=== PATIENT | male | born 1955 | race Caucasian/White ===

== ENCOUNTER 2019-02-24 13:26 | Outpatient (CLI) | payer MEDICARE, MEDICAID, SELFPAY ==
--- NOTE | 2019-02-24 13:40 | MERGE_ITS ---
*[facility]* *[facility]* [address] [place] [address] Date of study: 02/24/2019 Transthoracic Echocardiography M-mode, complete 2D, complete spectral Doppler, and color Doppler *STUDY CONCLUSIONS* Impressions: The patient was in atrial fibrillation throughout study. This rhythm can interfere with accurate global and segmental wall motion analysis. Summary: 1. Left ventricle: The cavity size was normal. Wall thickness was increased increased in a pattern of mild to moderate LVH. Systolic function was at the lower limits of normal. The estimated ejection fraction was 50-55%. Wall motion was normal; there were no regional wall motion abnormalities. 2. Aortic valve: Trileaflet; normal thickness, mildly calcified leaflets. 3. Ascending aorta: The ascending aorta was mildly dilated. 4. Left atrium: The atrium was mildly dilated. 5. Right ventricle: The cavity size was normal. Wall thickness was normal. Systolic function was normal. 6. Right atrium: The atrium was mildly to moderately dilated. 7. Pulmonary arteries: Pulmonary systolic pressure was increased, in the range of 30mm Hg to 40mm Hg. *PATIENT PRESENTATION* Height: 172.7cm ((68in) ) S/D Pressure: 136 / 83 Weight: 117.9kg ((259.5lb) ) BSA: 2.43m^2 Test start time: 01:45 PM. Test stop time: 02:45 PM. PERFORMING Unknown Jaiden Amin Robert CONSULTING Burnell, Kathryn Aprn PERFORMING [facility] [employer] RT Constantino (R)(CT), SUE *PROCEDURE DATA* Procedure information: This study was interpreted by [facility]. Pertinent images and digital data are archived for permanent storage and are available for subsequent review. No prior study was available for comparison. Study status: Routine. Transthoracic echocardiography. M-mode, complete 2D, complete spectral Doppler, and color Doppler. A Transthoracic Echocardiogram was performed. Scanning was performed from the parasternal, apical, subcostal, and suprasternal notch acoustic windows. Images were obtained using an [id number] cardiac ultrasound machine. Image quality was adequate. Study completion: The patient tolerated the procedure well. There were no complications. History: PMH: Hypertensive disorder I 10. *CARDIAC ANATOMY* Left ventricle: The cavity size was normal. Wall thickness was increased increased in a pattern of mild to moderate LVH. Systolic function was at the lower limits of normal. The estimated ejection fraction was 50-55%. Wall motion was normal; there were no regional wall motion abnormalities. The study was not technically sufficient to allow evaluation of LV diastolic dysfunction due to atrial fibrillation. Aortic valve: Trileaflet; normal thickness, mildly calcified leaflets. Mobility was not restricted. Doppler: Transvalvular velocity was within the normal range. There was no stenosis. There was no significant regurgitation. VTI ratio of LVOT to aortic valve: 0.73. Valve area (VTI): 2.4cm^2. Indexed valve area (VTI): 1cm^2/m^2. Peak velocity ratio of LVOT to aortic valve: 0.72. Valve area (Vmax): 2.4cm^2. Indexed valve area (Vmax): 1cm^2/m^2. Mean velocity ratio of LVOT to aortic valve: 0.7. Valve area (Vmean): 2.3cm^2. Indexed valve area (Vmean): 0.9cm^2/m^2. Mean gradient (S): 4.6mm Hg. Peak gradient (S): 7mm Hg. Aorta: Aortic root: The aortic root was normal in size. Ascending aorta: The ascending aorta was mildly dilated. Mitral valve: Mildly thickened leaflets. Mobility was not restricted. Doppler: Transvalvular velocity was within the normal range. There was no evidence for stenosis. There was trivial regurgitation. Valve area by pressure half-time: 6.7cm^2. Indexed valve area by pressure half-time: 2.7cm^2/m^2. Peak gradient (D): 3.3mm Hg. Left atrium: The atrium was mildly dilated. Right ventricle: The cavity size was normal. Wall thickness was normal. Systolic function was normal. Pulmonic valve: Structurally normal valve. Doppler: Transvalvular velocity was within the normal range. There was no evidence for stenosis. There was no significant regurgitation. Peak gradient (S): 3.4mm Hg. Tricuspid valve: Structurally normal valve. Doppler: Transvalvular velocity was within the normal range. There was no evidence for stenosis. There was mild regurgitation. Pulmonary artery: Pulmonary systolic pressure was increased, in the range of 30mm Hg to 40mm Hg. Right atrium: The atrium was mildly to moderately dilated. Pericardium: There was no pericardial effusion. Systemic veins: Inferior vena cava: Well visualized. The vessel was patent and normal in size. The respirophasic diameter changes were in the normal range (greater than or equal to 50%). Baseline ECG: Atrial fibrillation. Measurements Left ventricle Value Reference LV ID, ED, PLAX 5.1 cm 3.5 - 6.0 LV ID, ES, PLAX 3.7 cm 2.1 - 4.0 LV PW thickness, ED, PLAX 1.4 cm LV end-diastolic volume, 1-p A2C 70 ml LV ejection fraction, 1-p A2C 56 % LV end-diastolic volume, 1-p A4C 57 ml LV ejection fraction, 1-p A4C 55 % LV e', lateral 0.144 m/sec LV E/e', lateral 6 LV e', medial 0.101 m/sec LV E/e', medial 9 LV e', average 0.122 m/sec LV E/e', average 7 Ventricular septum Value Reference IVS thickness, ED, PLAX 1.3 cm LVOT Value Reference LVOT ID, A-P 2.0 cm LVOT area 3.3 cm^2 LVOT peak velocity, S 0.94 m/sec LVOT mean velocity, S 0.73 m/sec LVOT VTI, S 13.9 cm LVOT peak gradient, S 3.6 mm Hg LVOT mean gradient, S 2.3 mm Hg Stroke volume (SV), LVOT DP 46 ml Stroke index (SV/bsa), LVOT DP 19 ml/m^2 Aortic valve Value Reference Aortic valve peak velocity, S 1.3 m/sec Aortic valve mean velocity, S 1.05 m/sec Aortic valve VTI, S 19.0 cm Aortic mean gradient, S 4.6 mm Hg Aortic peak gradient, S 7 mm Hg VTI ratio, LVOT/AV 0.73 Aortic valve area, VTI 2.4 cm^2 Velocity ratio, peak, LVOT/AV 0.72 Aortic valve area, peak velocity 2.4 cm^2 Velocity ratio, mean, LVOT/AV 0.7 Aortic valve area, mean velocity 2.3 cm^2 Aortic valve area/bsa, mean velocity 0.9 cm^2/m^2 Aorta Value Reference Aortic root ID, ED 3.0 cm Ascending aorta ID, A-P, S 3.8 cm Left atrium Value Reference LA ID, A-P, ES 4.6 cm LA ID/bsa, A-P 1.9 cm/m^2 <=2.2 LA area, ES, A4C 22.5 cm^2 8.8 - 23.4 LA area, ES, A2C 22 cm^2 LA volume/bsa, ES, 1-p A4C 33 ml/m^2 LA volume, ES, 2-p 68 ml LA volume/bsa, ES, 2-p 28 ml/m^2 LA/aortic root ratio 1.54 Mitral valve Value Reference Mitral E-wave peak velocity 0.91 m/sec Mitral deceleration time (L) 114 ms 150 - 230 Mitral pressure half-time 33 ms Mitral peak gradient, D 3.3 mm Hg Mitral valve area, PHT, DP 6.7 cm^2 Tricuspid valve Value Reference Tricuspid regurg peak velocity 2.8 m/sec Tricuspid peak RV-RA gradient 30.7 mm Hg Right atrium Value Reference RA area, ES, A4C (H) 24.1 cm^2 8.3 - 19.5 Pulmonic valve Value Reference Pulmonic peak gradient, S 3.4 mm Hg Legend: (L) and (H) rhiannon values outside specified reference range. I have personally reviewed the images and have reviewed and edited the reported findings. Electronically signed by Uriel Montenegro 02/24/2019 15:40
== END 2019-02-24 13:46 ==
PROVIDERS: PCP Nurse Practitioner Family; Visit Provider Neuromusculoskeletal Medicine & OMM
DX: I48.91 Unspecified atrial fibrillation (principal); I51.7 Cardiomegaly; I10 Essential (primary) hypertension
CPT/HCPCS: 93306

== ENCOUNTER 2019-05-08 09:01 | Outpatient (CLI) | payer MEDICARE, MEDICAID, SELFPAY | END 2019-05-08 09:21 | PROVIDERS: Visit Provider Student in an Organized Health Care Education/Training Program | DX: I48.2 Chronic atrial fibrillation (principal); I10 Essential (primary) hypertension; E11.9 Type 2 diabetes mellitus without complications; N20.0 Calculus of kidney; Z79.84 Long term (current) use of oral hypoglycemic drugs | CPT/HCPCS: 99205; 93005; 93010 ==

== ENCOUNTER → 2019-06-04 11:15 | Outpatient (BNVA) | payer MEDICARE, MEDICAID, SELFPAY | PROVIDERS: PCP Neuromusculoskeletal Medicine & OMM; Visit Provider Student in an Organized Health Care Education/Training Program | DX: I48.2 Chronic atrial fibrillation (principal); I10 Essential (primary) hypertension; E11.9 Type 2 diabetes mellitus without complications; Z79.01 Long term (current) use of anticoagulants; Z79.84 Long term (current) use of oral hypoglycemic drugs | CPT/HCPCS: 99214 ==

== ENCOUNTER 2019-06-04 12:14 | Outpatient (CLI) | payer MEDICARE, MEDICAID, SELFPAY ==
--- NOTE | 2019-06-09 11:40 | HOLTER_ITS ---
DATE OF DICTATION: June 09, 2019 48-HOUR STUDY Atrial flutter throughout recording. Daytime and nocturnal heart rates appear to be 80-100 bpm. Rare single PVC versus aberrantly-conducted beat. No VT. No significant bradycardia. No symptoms. Average heart rate 92 bpm, range 72-152 bpm.
== END 2019-06-04 12:34 ==
PROVIDERS: PCP Neuromusculoskeletal Medicine & OMM; Visit Provider Student in an Organized Health Care Education/Training Program
DX: I48.92 Unspecified atrial flutter (principal); I10 Essential (primary) hypertension; Z79.01 Long term (current) use of anticoagulants; E11.9 Type 2 diabetes mellitus without complications; Z79.84 Long term (current) use of oral hypoglycemic drugs
CPT/HCPCS: 99214; 93225

== ENCOUNTER 2019-06-06 16:42 | Outpatient (CLI) | payer MEDICARE, MEDICAID, SELFPAY | END 2019-06-06 17:02 | LOC: LBN 06-26 07:12 → LBO 08-01 10:43 | PROVIDERS: PCP Neuromusculoskeletal Medicine & OMM; Visit Provider Neuromusculoskeletal Medicine & OMM | DX: I48.92 Unspecified atrial flutter (principal) | CPT/HCPCS: 93226 ==

== ENCOUNTER 2019-06-09 09:22 | Outpatient (CLI) | payer MEDICARE, MEDICAID, SELFPAY | END 2019-06-09 09:42 | PROVIDERS: PCP Neuromusculoskeletal Medicine & OMM; Referring Provider Neuromusculoskeletal Medicine & OMM; Visit Provider Internal Medicine Interventional Cardiology | DX: I48.92 Unspecified atrial flutter (principal) | CPT/HCPCS: 93227 ==

== ENCOUNTER → 2019-12-09 13:50 | Outpatient (BNVA) | payer MEDICARE, MEDICAID, SELFPAY | PROVIDERS: PCP Neuromusculoskeletal Medicine & OMM; Referring Provider Neuromusculoskeletal Medicine & OMM; Visit Provider Internal Medicine Cardiovascular Disease | DX: I48.2 Chronic atrial fibrillation (principal); I10 Essential (primary) hypertension; Z01.810 Encounter for preprocedural cardiovascular examination; E11.9 Type 2 diabetes mellitus without complications; Z79.84 Long term (current) use of oral hypoglycemic drugs | CPT/HCPCS: 99204; 99215 ==

== ENCOUNTER → 2020-06-07 08:34 | Outpatient (BNVA) | payer MEDICARE, MEDICAID, SELFPAY | PROVIDERS: PCP Neuromusculoskeletal Medicine & OMM; Referring Provider Neuromusculoskeletal Medicine & OMM; Visit Provider Internal Medicine Cardiovascular Disease | DX: I48.20 Chronic atrial fibrillation, unspecified (principal); I10 Essential (primary) hypertension; E11.9 Type 2 diabetes mellitus without complications; Z79.84 Long term (current) use of oral hypoglycemic drugs | CPT/HCPCS: 99214 ==

== ENCOUNTER → 2020-12-06 08:23 | Outpatient (BNVA) | payer MEDICARE, MEDICAID, SELFPAY | PROVIDERS: PCP Neuromusculoskeletal Medicine & OMM; Referring Provider Neuromusculoskeletal Medicine & OMM; Visit Provider Internal Medicine Cardiovascular Disease | DX: I48.2 Chronic atrial fibrillation (principal); I10 Essential (primary) hypertension; R60.0 Localized edema; E11.9 Type 2 diabetes mellitus without complications; N40.1 Benign prostatic hyperplasia with lower urinary tract symptoms; R35.1 Nocturia | CPT/HCPCS: 99214 ==

== ENCOUNTER → 2021-06-09 12:51 | Outpatient (BNVA) | payer MEDICARE, MEDICAID, SELFPAY | PROVIDERS: PCP Neuromusculoskeletal Medicine & OMM; Referring Provider Neuromusculoskeletal Medicine & OMM; Visit Provider Internal Medicine Cardiovascular Disease | DX: I48.20 Chronic atrial fibrillation, unspecified (principal); I10 Essential (primary) hypertension; R60.0 Localized edema; Z79.899 Other long term (current) drug therapy; E11.9 Type 2 diabetes mellitus without complications | CPT/HCPCS: 99214 ==

== ENCOUNTER → 2021-12-09 11:05 | Outpatient (BNVA) | payer MEDICARE, MEDICAID, SELFPAY | PROVIDERS: PCP Neuromusculoskeletal Medicine & OMM; Visit Provider Internal Medicine Cardiovascular Disease | DX: I10 Essential (primary) hypertension (principal); I48.21 Permanent atrial fibrillation | CPT/HCPCS: 99213 ==

== ENCOUNTER 2023-07-24 08:25 | Outpatient (CLI) | payer MEDICARE, MEDICAID, SELFPAY ==
--- NOTE | 2023-07-24 08:15 | RT.EKG_ITS ---
APPROVED REPORT Exam: Resting ECG Reason for Exam: afib Patient Location: O HR:92 bpm ECG Measurements Heart Rate 92 AXIS FL [id number] P [id number] QRSd 89 QRS 41 QT 328 T -27 QTc 406 Conclusion Atrial fibrillation...V-rate 76-121, irreg A-activity Poor R wave progression
== END 2023-07-24 08:26 | disposition home or self-care (01) ==
LOC: DI.CARD 08:26
PROVIDERS: PCP Neuromusculoskeletal Medicine & OMM; Visit Provider Internal Medicine Cardiovascular Disease
DX: I10 Essential (primary) hypertension (principal)
CPT/HCPCS: 93010

== ENCOUNTER → 2023-07-24 12:57 | Outpatient (BNVA) | payer MEDICARE, MEDICAID, SELFPAY | PROVIDERS: PCP Neuromusculoskeletal Medicine & OMM; Referring Provider Neuromusculoskeletal Medicine & OMM; Visit Provider Internal Medicine Cardiovascular Disease | DX: I48.21 Permanent atrial fibrillation (principal); R31.9 Hematuria, unspecified; T46.6X5D Adverse effect of antihyperlipidemic and antiarteriosclerotic drugs, subsequent encounter | CPT/HCPCS: 93005; 99213 ==

== ENCOUNTER → 2024-07-22 12:11 | Outpatient (BNVA) | payer MEDICARE, MEDICAID, SELFPAY | PROVIDERS: PCP Neuromusculoskeletal Medicine & OMM; Referring Provider Neuromusculoskeletal Medicine & OMM; Visit Provider Internal Medicine Cardiovascular Disease | DX: I48.21 Permanent atrial fibrillation (principal) | CPT/HCPCS: 99213 ==

== ENCOUNTER 2024-09-01 01:34 | Outpatient (CLI) | payer MEDICARE, MEDICAID, SELFPAY ==
--- NOTE | 2024-09-01 13:30 | DI.US_ITS ---
APPROVED REPORT EXAM: Comprehensive 2D, Doppler, and color-flow Echocardiogram Patient Location: Out-Patient Wall Cleaner: Manuel Cast RDCS (AE) Indications: Permanent afib Other Information Technically limited study due to body habitus. Conclusion Normal left ventricular wall thickness and chamber size. Ejection fraction is 55%. Wall motion is n ormal Normal right ventricular size and function Both atria are mildly enlarged There is no structural or hemodynamically significant valvular disease Wall motion Left Ventricle The left ventricle is normal size. The left ventricular systolic function is normal. The left ventric ular ejection fraction is within the normal range. There is normal left ventricular wall thickness. T here is normal LV segmental wall motion. There is no ventricular septal defect visualized. LVEF is 55 %. Right Ventricle The right ventricle is normal size. The right ventricular systolic function is normal. Atria Left atrium is mildly dilated. Right atrium is mildly dilated. The interatrial septum is intact with no evidence for an atrial septal defect. Aortic Valve The aortic valve is normal in structure. There is no aortic valvular stenosis. No aortic regurgitatio n is present. Mitral Valve The mitral valve is normal in structure. No evidence of mitral valve stenosis. There is no mitral [place] ve regurgitation noted. Tricuspid Valve The tricuspid valve is normal in structure. There is no tricuspid valve stenosis. Trace tricuspid reg urgitation. Unable to assess PA pressure. Pulmonic Valve The pulmonary valve is normal in structure. There is no pulmonic valvular stenosis. Trace pulmonic re gurgitation. Great Vessels The aortic root is normal in size. The ascending aorta is normal in size. Aortic arch is normal in ca liber. IVC is normal in size and collapses >50% with inspiration. Pericardium There is no pericardial effusion. 2D Dimensions IVSD d PLAX 1.00 cm M: 0.6-1.2 Ao Root d 2.61 cm M: 3.1 - 3.7 LVPW d PLAX 1.03 cm M: 0.6 - 1.2 Ao Asc Diam d 3.30 cm M: 2.6 - 3.4 LVID d PLAX 4.54 cm M: 4.2 - 5.8 LVDs 3.24 cm M: 2.5 - 4.0 LV EF Teichholz 55.4 % FS 28.69 % LV EDV (Teich) 94.3 mL LV ESV (Teich) 42.1 mL Stroke Vol Index (Teich) 23.20 M-Mode TAPSE 2.30 cm (M/F) >1.7 Auto EF LV EDV A4C 103.5 mL LV EDV A2C 105.7 mL LV EDV BP 104.9 mL LV ESV A4C 49.1 mL LV ESV A2C 50.2 mL LV ESV BP 49.7 mL LVEF(%) A4C 52.6 % LVEF(%) A2C 52.5 % LVEF(%) BP 52.7 % LV SV A4C 54.4 ml LV SV A2C 55.5 ml LV SV BP 55.3 ml LV CO A4C 5.0 L/min LV CO A2C 4.3 L/min LV CO BP 4.7 L/min HR A4C 91.80 BPM HR A2C 78.27 BPM LV EDV Index (BP) LA Volume LA Length A4C 6.7 cm LA Length A2C 7.6 cm LA Area A4C s 22.76 cm2 LA Area A2C s 28.36 cm2 LA Vol A4C A-L 65.34 mL LA Vol A2C A-L 90.03 mL LA Vol Biplane A-L 81.4 mL LA Vol/BSA A4C A-L LA Vol/BSA A2C A-L LA Vol/BSA BP A-L 36.2 mL/m2 LA Vol A4C MOD 60.9 mL LA Vol A2C MOD 86.4 mL LA Vol BP MOD 76.9 mL RA Volume RA Area A4C 23.6 cm2 RA ESV A4C (A-L) 80.1mL RA Vol/BSA A4C A-L RA Length A4C 5.9 cm RA ESV A4C (MOD) 70.3mL LV Diastology MV E' medial 0.121 (>0.07 m/s) MV E Vmax 0.81 (0.4-1.3 m/s) MV E' lateral 0.126 (>0.1 m/s) Aortic Valve AoV Vmax 1.36 m/s LVOT Vmax 1.04 m/s AoV Peak Grad 7.4 mmHg LVOT Peak Grad 4.3 mmHg AoV Area (Vmax) 2.03 cm2 LVOT VTI 0.198 m AoV VTI 0.241 m LVOT Mean Grad 2.8 mmHg AoV Mean Jeff. 0.90 m/s LVOT SV 52.69 mL AoV Mean Grad 3.9 mmHg LVOT Diam s 1.80 cm AoV Area (VTI) 2.19 cm2 AV Regurg Peak Gr. 7.38 mmHg Velocity Ratio 0.76 Mitral Valve MV Vmax TIPS 0.80 m/s MV Mean Grad 1.0 (<2mmHg) MV VTI 0.145 m Pulmonary Valve PV Vmax 0.89 (0.5-1.5 m/s) RVOT Vmax 0.74 m/s PV Peak Grad 3.2 mmHg RVOT Peak Gr. 2.2 mmHg PV Mean Jeff 0.55 m/s RVOT VTI 0.121 m PV Mean Grad 1.4 mmHg RVOT Mean Gr. 1.0 mmHg
== END 2024-09-01 01:54 ==
LOC: DI 01:34
PROVIDERS: PCP Neuromusculoskeletal Medicine & OMM; Visit Provider Internal Medicine Cardiovascular Disease
DX: I48.21 Permanent atrial fibrillation (principal)
CPT/HCPCS: 93306